=== PATIENT | male | born 1970 | race Two or more races ===

== ENCOUNTER 2017-09-24 02:54 | Emergency (ER) | payer OTHER ==
[~2017-09-24] VITALS: Ht 210.8 cm; Wt 154.2 kg
[2017-09-24 02:55] VITALS: BP 136/88
[2017-09-24] MEDS ORDERED: Norco 5mg/325mg tab ORAL ONE (03:00)
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
[2017-09-24] MEDS ORDERED: IBUPROFEN600 MG ORAL (03:45)
[2017-09-24 04:08] VITALS: BP 136/88
--- NOTE | 2017-09-24 07:13 | Diagnostic Imaging Report ---
EXAM: XR Right Shoulder Complete, 2 or More Views. CLINICAL HISTORY: PAIN TECHNIQUE: 3 views of the right shoulder. COMPARISON: No relevant prior studies available. FINDINGS: Bones: No acute fracture. Joints: No dislocation. Soft tissues: Unremarkable. IMPRESSION: No acute osseous abnormality..
== END 2017-09-24 04:10 | disposition home or self-care (01) ==
LOC: EDBD 02:54 → EMR 03:48
DX: S43.004A Unspecified dislocation of right shoulder joint, initial encounter (principal); X50.9XXA Other and unspecified overexertion or strenuous movements or postures, initial encounter; Y92.511 Restaurant or cafe as the place of occurrence of the external cause; Y99.0 Civilian activity done for income or pay
CPT/HCPCS: 29105; 99283